=== PATIENT | male | born 1985 | race African-American/Black ===

== ENCOUNTER 2016-10-11 13:04 | Emergency (ER) | payer MEDICAID ==
[~2016-10-11] VITALS: Ht 172.7 cm; Wt 77.0 kg
[~2016-10-11 13:04] MED LIST: ACET-2178; HYDR-1348; VICODIN
[2016-10-11 13:17] VITALS: BP 135/75
== END 2016-10-11 15:07 | disposition home or self-care (01) ==
LOC: ER 13:05
DX: B35.8 Other dermatophytoses (principal); F17.200 Nicotine dependence, unspecified, uncomplicated; F12.10 Cannabis abuse, uncomplicated
CPT/HCPCS: 99282

== ENCOUNTER 2016-11-09 18:11 | Emergency (ER) | payer MEDICAID ==
[~2016-11-09] VITALS: Ht 170.2 cm; Wt 79.0 kg
[2016-11-09] MEDS ORDERED: CEFTRIAXONE SODIUM 250 MG/VIAL IM ONE (18:45)
[2016-11-09] MEDS ORDERED: AZITHROMYCIN 500 MG TABLET PO ONE (18:45)
[2016-11-09 18:49] LABS: CLARITY URINE CLEAR (CLEAR); COLOR URINE YELLOW (YELLOW); GLUCOSE URINE NEGATIVE (NEGATIVE); KETONES URINE TRACE (NEGATIVE); LEUKOCYTE ESTERASE URINE NEGATIVE (NEGATIVE); NITRITE URINE NEGATIVE (NEGATIVE); OCCULT BLOOD URINE NEGATIVE (NEGATIVE); PH URINE 5.5 (4.5-8.0); PROTEIN URINE NEGATIVE (NEGATIVE); SPECIFIC GRAVITY URINE 1.031 (1.005-1.030)
[2016-11-09 18:52] VITALS: BP 131/83
[2016-11-09] MEDS ORDERED: LIDOCAINE HCL 1% 20ML VIAL (Pyxis) INJ MC ONE (19:00)
[2016-11-13 05:18] LABS: CHLAMYDIA TRACHOMATIS NAA Negative (Negative); NEISSERIA GONORRHOEAE NAA Negative (Negative)
== END 2016-11-09 19:32 | disposition home or self-care (01) ==
LOC: ER 18:11
DX: R30.0 Dysuria (principal); F17.210 Nicotine dependence, cigarettes, uncomplicated; Z79.899 Other long term (current) drug therapy; Z87.440 Personal history of urinary (tract) infections
CPT/HCPCS: 81003; 87491; 87591; 96372; 99284; J0696; J3490; Z7610

== ENCOUNTER 2017-05-25 16:47 | Emergency (ER) | payer MEDICAID ==
[~2017-05-25] VITALS: Ht 172.7 cm; Wt 75.0 kg
[2017-05-25] MEDS ORDERED: ASPIRIN 81MG TABLET PO ONE (19:45)
[2017-05-25 20:04] LABS: BASOPHILS % 0.8 % (0.0-2.0); HEMATOCRIT. 44.8 % (42.0-52.0); LYMPHOCYTES % 29.6 % (20.0-50.0); MEAN CORPUSCULAR HEMOGLOBIN 29.2 pg (28.0-32.0); MEAN CORPUSCULAR VOLUME 87.2 fL (80.0-94.0); MEAN PLATELET VOLUME 6.3 fl (7.4-10.4); MONOCYTES % 9.8 % (2.0-8.0); NEUTROPHILS % 58.8 % (40.0-76.0); PLATELET 216 x1000/uL (130-400); RED BLOOD CELL COUNT 5.14 mill/uL (4.7-6.1); RED CELL DISTRIBUTION WIDTH 14.1 % (11.6-14.6)
[2017-05-25 20:07] LABS: CHLORIDE 104 mEq/L (98-107)
[2017-05-25 20:16] LABS: CARBON DIOXIDE 23 mEq/L (21-32); TROPONIN I < 0.02 ng/mL (0.00-0.04)
[2017-05-25 20:33] LABS: *AMPHETAMINES SCREEN URINE NEGATIVE (NEGATIVE); *BARBITURATES SCREEN URINE NEGATIVE (NEGATIVE); *BENZODIAZEPINES SCREEN URINE NEGATIVE (NEGATIVE); *COCAINE SCREEN URINE NEGATIVE (NEGATIVE); CANNABINOID URINE SCREEN PRESUMTIVE POSITIVE (NEGATIVE); METHADONE URINE SCREEN NEGATIVE (NEGATIVE); OPIATES URINE SCREEN NEGATIVE (NEGATIVE); PHENCYCLIDINE URINE SCREEN NEGATIVE (NEGATIVE)
[2017-05-25 20:54] VITALS: BP 125/72
== END 2017-05-25 20:56 | disposition home or self-care (01) ==
LOC: ER 19:24
DX: R07.89 Other chest pain (principal); F17.200 Nicotine dependence, unspecified, uncomplicated; F12.10 Cannabis abuse, uncomplicated
CPT/HCPCS: 36415; 71010; 80048; 80305; 84484; 85025; 93005; 99285

== ENCOUNTER 2018-07-10 16:38 | Emergency (ER) | payer MEDICAID ==
[~2018-07-10] VITALS: Ht 182.9 cm; Wt 75.0 kg
[2018-07-10 16:50] VITALS: BP 120/70
== END 2018-07-10 22:28 | disposition left against medical advice (07) ==
LOC: ER 16:38
DX: Z53.21 Procedure and treatment not carried out due to patient leaving prior to being seen by health care provider (principal)

== ENCOUNTER 2018-08-26 09:26 | Emergency (ER) | payer MEDICAID ==
[~2018-08-26] VITALS: Ht 172.7 cm; Wt 73.0 kg
[2018-08-26] MEDS ORDERED: SODIUM CHLORIDE 0.9% 1,000 ML IV ONE (11:38)
[2018-08-26] MEDS ORDERED: MORPHINE SULFATE 4 MG/ML CPJ (NOT FOR IM USE) IV STA (11:38)
[2018-08-26] MEDS ORDERED: ONDANSETRON HCL 4MG/2ML INJ IV STA (11:38)
[2018-08-26 11:45] LABS: CLARITY URINE CLEAR (CLEAR); COLOR URINE YELLOW (YELLOW); KETONES URINE NEGATIVE (NEGATIVE); LEUKOCYTE ESTERASE URINE NEGATIVE (NEGATIVE); NITRITE URINE NEGATIVE (NEGATIVE); OCCULT BLOOD URINE NEGATIVE (NEGATIVE); PROTEIN URINE NEGATIVE (NEGATIVE); SPECIFIC GRAVITY URINE 1.002 (1.005-1.030); UROBILINOGEN URINE 0.2 E.U./dL (0.2-1.0)
[2018-08-26 12:23] LABS: BASOPHILS % 0.5 % (0.0-2.0); EOSINOPHILS % 0.7 % (0.0-5.0); HEMATOCRIT. 41.5 % (42.0-52.0); HEMOGLOBIN. 13.8 g/dL (14.0-18.0); LYMPHOCYTES % 22.7 % (20.0-50.0); MEAN CORPUSCULAR HEMOGLOBIN 28.1 pg (28.0-32.0); MEAN CORPUSCULAR VOLUME 84.8 fL (80.0-94.0); MEAN PLATELET VOLUME 6.7 fl (7.4-10.4); MONOCYTES % 7.8 % (2.0-8.0); NEUTROPHILS % 68.3 % (40.0-76.0); PLATELET 249 x1000/uL (130-400); RED CELL DISTRIBUTION WIDTH 14.8 % (11.6-14.6)
[2018-08-26 12:27] LABS: CHLORIDE 108 mEq/L (98-107)
[2018-08-26 12:31] LABS: ETHANOL BLOOD 91 mg/dL
[2018-08-26 14:44] LABS: *AMPHETAMINES SCREEN URINE NEGATIVE (NEGATIVE); *BARBITURATES SCREEN URINE NEGATIVE (NEGATIVE); *BENZODIAZEPINES SCREEN URINE NEGATIVE (NEGATIVE); *COCAINE SCREEN URINE NEGATIVE (NEGATIVE); METHADONE URINE SCREEN NEGATIVE (NEGATIVE); OPIATES URINE SCREEN PRESUMTIVE POSITIVE (NEGATIVE)
[2018-08-26 14:45] LABS: CANNABINOID URINE SCREEN PRESUMTIVE POSITIVE (NEGATIVE); PHENCYCLIDINE URINE SCREEN NEGATIVE (NEGATIVE)
[2018-08-26 15:10] VITALS: BP 123/88
== END 2018-08-26 15:35 | disposition home or self-care (01) ==
LOC: ER 10:09
DX: K80.50 Calculus of bile duct without cholangitis or cholecystitis without obstruction (principal); F12.10 Cannabis abuse, uncomplicated; F17.200 Nicotine dependence, unspecified, uncomplicated; Z87.440 Personal history of urinary (tract) infections; Z79.899 Other long term (current) drug therapy
CPT/HCPCS: 36415; 74176; 76705; 80053; 80305; 81003; 83690; 85025; 85610; 87186; 96374; 96375; 96376; 99284; J2270; J2405; J7030

== ENCOUNTER 2019-03-29 13:21 | Emergency (ER) | payer MEDICAID ==
[~2019-03-29 13:21] MED LIST changes: -ACET-2178; +TOPUD
[2019-03-29 14:00] VITALS: BP 139/87
== END 2019-03-29 14:13 | disposition home or self-care (01) ==
LOC: ER 13:21
DX: K11.5 Sialolithiasis (principal); F12.10 Cannabis abuse, uncomplicated
CPT/HCPCS: 99281; 99282